=== PATIENT | male | born 1980 | race Caucasian/White ===

== ENCOUNTER 2019-06-29 12:46 | Emergency (ER) | payer BC, SELFPAY ==
--- NOTE | ~2019-06-29 | XR_ITS ---
XR finger 3rd RT min 2V DATE: 06/29/2019 13:12 INDICATION: Left third finger injury, pain TECHNIQUE: 3 views COMPARISON: None FINDINGS: No fracture or dislocation, periosteal reaction or bone destruction. No radiopaque foreign body. IMPRESSION: Negative Reviewed, dictated and finalized at location A. IMPRESSION: Negative
[2019-06-29 13:00] VITALS: BP 117/72; PULSE 58; RESP 16; TEMP 36.9; O2SAT 99
--- NOTE | 2019-06-29 13:24 | ED.UPPEXIN ---
HPI - Extremity Injury (Upper) General Chief Complaint: Extremity Injury, Upper Stated Complaint: sprained right middle finger Time Seen by Provider: 06/29/19 13:24 Source: patient Mode of arrival: ambulatory Limitations: no limitations History of Present Illness HPI narrative: Caleb River is a 38 yo male with PMH of afib who hurt 3ed R finger of R hand last night. 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 EYES: Denies visual changes, redness, discharge. ENT: Denies rhinorrhea, congestion, sore throat, otalgia. CARDIOVASCULAR: Denies chest pain, palpitations, edema. RESPIRATORY: Denies dyspnea, wheezing, cough GASTROINTESTINAL: Denies abdominal pain, nausea, vomiting, diarrhea. GENITOURINARY: Denies dysuria, hematuria, abnormal discharge SKIN: Denies rash or itching. NEUROLOGIC: Denies numbness, or focal weakness. PSYCHIATRIC: Denies anxiety or depression. Right middle finger pain and swelling PMFSH Past Medical History Medical History A-fib Family History Family History Other No active medical problems Social History Social History Smoking status: Never smoker Alcohol intake: current Comments At time of signature, I agree with nursing past medical, surgical, social and family history. There is no relevant family history pertinent to the presenting complaint. Exam Narrative: Exam Narrative: GENERAL: This is a well-nourished, well-developed patient, in mild distress. HEAD: normocephalic, atraumatic. EYES: Sclera clear/white. Vision is grossly intact. EARS: External ears normal, Hearing grossly intact. NOSE: External nose normal without nasal discharge, nares without redness, no rhinorrhea. THROAT: Mucous membranes moist, posterior pharynx CARDIOVASCULAR: Regular rate and rhythm without murmurs, gallops, or rubs. RESPIRATORY: Clear to auscultation. Breath sounds equal bilaterally. No wheezes, rales, or rhonchi. GASTROINTESTINAL: Abdomen soft, SKIN: warm, intact with no suspicious lesions or rash, good texture and turgor. NEURO: awake, alert, and oriented to person, place and time. There were no obvious focal neurologic abnormalities. 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 BACK: Nontender without deformity Course Course Emergency Course: X-ray negative for finger fracture Placed in metal splint-ice finger for the next 24 hours Discussed use of ibuprofen up to 8 or milligrams 3 times daily Vital Signs Vital signs: Vital Signs Temperature 98.5 F 06/29/19 13:00 Pulse Rate 58 L 06/29/19 13:00 Respiratory Rate 16 06/29/19 13:00 Blood Pressure 117/72 06/29/19 13:00 Pulse Oximetry 99 06/29/19 13:00 Temperature 98.5 F 06/29/19 13:00 Pulse Rate 58 L 06/29/19 13:00 Respiratory Rate 16 06/29/19 13:00 Blood Pressure 117/72 06/29/19 13:00 Pulse Oximetry 99 06/29/19 13:00 MDM - Extremity Injury (Upper) Differential Diagnosis Differential diagnosis: Likely finger sprain, dislocation of finger, fracture of hand and other Discharge Plan Discharge Clinical Impression: Soft tissue injury of finger Qualifiers: Encounter type: initial encounter Laterality: right Qualified Code(s): S69.91XA - Unspecified injury of right wrist, hand and finger(s), initial encounter Patient Disposition: Home, Self-Care Condition: Stable
== END 2019-06-29 13:42 | disposition home or self-care (01) ==
PROVIDERS: Emergency Provider Nurse Practitioner; PCP Family Medicine
DX: S69.91XA Unspecified injury of right wrist, hand and finger(s), initial encounter (principal); I48.91 Unspecified atrial fibrillation; W22.8XXA Striking against or struck by other objects, initial encounter
CPT/HCPCS: 29130; 73140; 99213; G0463

== ENCOUNTER 2024-05-24 09:40 | Emergency (ER) | payer BC, SELFPAY ==
[2024-05-24 09:44] VITALS: BP 117/77; PULSE 61; RESP 16; TEMP 36.8; O2SAT 100
--- NOTE | 2024-05-24 09:44 | ED.SKABFB ---
HPI - Skin/Abscess/Foreign Bdy General Chief complaint: Skin/Abscess/Foreign Body Stated complaint: Skin Irritation Time Seen by Provider: 05/24/24 09:42 Source: patient Mode of arrival: ambulatory Limitations: no limitations History of Present Illness HPI narrative: Caleb is a 43-year-old male patient presenting to the clinic today with complaints of a rash to his right leg that he noticed 3 days ago. He states the rash is not itch and is nonpainful. No known injury. Denies any fever or URI symptoms. No changes in soaps, shampoos, lotions, detergents, foods, or medications. Rash initially started on the right anterior thigh and has spread to the right posterior thigh and to the upper right and left posterior thigh. Related Data Allergies Allergy/AdvReac Type Severity Reaction Status Date / Time Penicillins Allergy Unknown Unknown Verified 05/24/24 09:46 Review of Systems Review of Systems: Pertinent positives per HPI. Patient denies any fever, chills, headache, visual changes, dizziness, cough, runny nose, sore throat, shortness of breath, chest pain, palpitations, nausea, vomiting, diarrhea, constipation, abdominal pain, or any urinary issues. PMFSH Past Medical History Medical History (Updated 05/24/24 @ 10:13 by Martinez Fair APRN) A-fib Family History Family History Other Malignant neoplasm of prostate Other Malignant neoplasm of prostate Social History Social History Smoking status: Never smoker Second hand tobacco smoke exposure: No Alcohol intake: current Substance use: never Substance use type: does not use Living arrangements: with family Occupation/Education: occupation Gender identity (if verbalized by the patient): Male Sexual Orientation (if Verbalized by the Patient): Straight or Heterosexual Comments At the time of my signature, I reviewed and agree with the nursing past medical, surgical, social, and family history. There is no relevant family history pertinent to the patient complaint. Exam Narrative: General: Well-developed, well nourished, in no apparent distress Head: Normocephalic, atraumatic. Cardio: Regular rate and rhythm, s1 and s2 normal, no murmur appreciated. Resp: Clear to auscultation bilaterally, no rhonchi, rales, wheezing or rubs. Musculoskeletal: No deformity, non-tender to palpation, grossly normal range of motion, muscle strength strong and equal, peripheral pulse strong, no edema, no cyanosis, normal gait and station Integumentary: Gage, warm, and dry, red, flat, blanchable, mild scaly, non pruritic, circular, non weeping rash to the right anterior thigh, right posterior thigh, and left posterior thigh. Course Course Emergency Course: Portions of this record may have been created with voice recognition software. Level of Care: Express Care Visit Vital Signs Vital signs: Vital Signs Temperature 36.8 C 05/24/24 09:44 Pulse Rate 61 05/24/24 09:44 Respiratory Rate 16 05/24/24 09:44 Blood Pressure 117/77 05/24/24 09:44 Pulse Oximetry 100 05/24/24 09:44 Oxygen Delivery Room Air 05/24/24 09:44 Temperature 36.8 C 05/24/24 09:44 Pulse Rate 61 05/24/24 09:44 Respiratory Rate 16 05/24/24 09:44 Blood Pressure 117/77 05/24/24 09:44 Pulse Oximetry 100 05/24/24 09:44 Oxygen Delivery Room Air 05/24/24 09:44 Vital signs reviewed MDM - Skin/Abscess/Foreign Bdy MDM Narrative Medical decision making narrative: At the time of visit patient is resting comfortably on the exam table. Patient appears to be nontoxic. Plan: Patient has a rash to the right and anterior thighs-differentials of the rash include pityriasis rosea, dermatitis, tinea corpis, annular granuloma, eczema. Will place the patient on triamcinolone cream/nystatin cream to cover for dermatitis/any a corpus. Supportive measures were discussed with the patient and they voiced understanding discharge instructions and agrees to treatment plan. Return precautions reviewed Differential Diagnosis Differential diagnosis: Likely abscess of skin or subcutaneous tissue, viral exanthem, dermatophytosis, urticaria, herpes zoster, allergic reaction to drug, cellulitis, eczema, insect bites, impetigo and contact dermatitis Discharge Plan Discharge Clinical Impression: Dermatitis Patient Disposition: Home Condition: Stable Instructions: Antibiotic Form, Dermatitis (ED) Additional Instructions: Apply triamcinolone cream and nystatin cream as directed Avoid hot showers Avoid scratching as this can cause a secondary infection May take benadryl 25-50mg every 6 hours as needed for itching. 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 as discussed-Dr Agarwal-call office to schedule [phone] Go to the Emergency Room if symptoms worsen- fever, rash spreading with treatment, shortness of breath, tongue swelling, drooling, or chest pain Patient Language: Romansh Prescriptions: New nystatin 100,000 unit/gram cream 1 applic topical BID 14 Days Qty: 30 0RF triamcinolone acetonide 0.1 % cream 1 applic topical BID 14 Days Qty: 30 0RF Follow-up/Referrals: PHYSICIAN,TERMINAL SUPERINTENDENT [Primary Care Provider] - Time of Disposition: 10:14 Quality NIHSS Nursing Documentation ED NIHSS nursing documentation: reviewed/agree
== END 2024-05-24 10:18 | disposition home or self-care (01) ==
PROVIDERS: Emergency Provider Nurse Practitioner Family
DX: L30.9 Dermatitis, unspecified (principal); I48.91 Unspecified atrial fibrillation
CPT/HCPCS: 99213; G0463